=== PATIENT | female | born 1940 | race Caucasian/White ===

== ENCOUNTER 2023-06-12 11:34 | Emergency (ER) | payer MEDICARE, OTHER ==
[~2023-06-12] VITALS: Ht 170.2 cm; Wt 64.0 kg
[2023-06-12 14:52] VITALS: BP 153/87; TEMP 98.4; O2SAT 97
== END 2023-06-12 14:52 | disposition home or self-care (01) ==
LOC: ER 11:45
DX: S01.01XA Laceration without foreign body of scalp, initial encounter (principal); W01.0XXA Fall on same level from slipping, tripping and stumbling without subsequent striking against object, initial encounter; Y93.89 Activity, other specified; Y92.34 Swimming pool (public) as the place of occurrence of the external cause; Y99.8 Other external cause status
CPT/HCPCS: 99284; 70450; 12001; A6403

== ENCOUNTER 2023-06-20 09:06 | Emergency (ER) | payer MEDICARE ==
[~2023-06-20] VITALS: Ht 170.2 cm; Wt 53.5 kg
[2023-06-20 09:11] VITALS: BP 157/82; TEMP 97.9; O2SAT 97
== END 2023-06-20 09:30 | disposition home or self-care (01) ==
LOC: ER 09:06
DX: S01.01XD Laceration without foreign body of scalp, subsequent encounter (principal); X58.XXXD Exposure to other specified factors, subsequent encounter

== ENCOUNTER 2023-08-28 14:17 | Emergency (ER) | payer MEDICARE ==
[~2023-08-28] VITALS: Ht 170.2 cm; Wt 54.4 kg
[2023-08-28 14:30] VITALS: BP 133/74; TEMP 98.3
[2023-08-28] MEDS ORDERED: AMOX-430 PO (14:51)
[2023-08-28 14:56] VITALS: O2SAT 99
== END 2023-08-28 14:57 | disposition home or self-care (01) ==
LOC: ER 14:53
DX: L03.116 Cellulitis of left lower limb (principal); Z79.899 Other long term (current) drug therapy

== ENCOUNTER → 2023-09-09 | Emergency (ER) | payer MEDICARE ==
[~2023-09-09] VITALS: Ht 170.2 cm; Wt 54.4 kg
[~2023-09-09] MED LIST: AMOX-430 PO; POTASSIUM CHLORIDE 20 MEQ TAB.PRT.SR PO ONE
[2023-09-09] MEDS: IV NS 0.9% 1,000 ML BAG IV ONE (10:00)
[2023-09-09 10:03] LABS: BASOPHILS % (AUTO) 0.2 % (0.0-2.0); EOSINOPHILS # (AUTO) 0.1 K/uL (0.0-0.7); EOSINOPHILS % (AUTO) 0.6 % (0.0-6.0); HEMATOCRIT 38 % (33-45); HEMOGLOBIN 13.3 g/dL (11.5-14.8); LYMPHOCYTES # (AUTO) 0.6 K/uL (0.8-4.8); LYMPHOCYTES % (AUTO) 6.4 % (20.0-44.0); MEAN CORPUSCULAR HEMOGLOBIN 34 PG (26.0-33.0); MEAN CORPUSCULAR HGB CONC 35 g/dl (31.0-36.0); MEAN CORPUSCULAR VOLUME 98 fL (82-100); MONOCYTES # (AUTO) 1.1 K/uL (0.1-1.30); MONOCYTES % (AUTO) 12.5 % (2.0-12.0); NEUTROPHILS # (AUTO) 7.2 K/uL (1.8-8.9); NEUTROPHILS % (AUTO) 80.3 % (43.0-81.0); PLATELET COUNT (AUTO) 191 K/uL (150-450); RED BLOOD CELL COUNT(AUTO) 3.87 MIL/uL (4.0-5.2); RED CELL DISTRIBUTION WIDTH 12.5 % (11.5-15.0); WHITE BLOOD COUNT (AUTO) 8.9 K/uL (4.3-11.0)
[2023-09-09 10:15] LABS: CALCIUM, SERUM 8.7 mg/dL (8.5-10.1); CARBON DIOXIDE 25 mmol/L (21-32); CHLORIDE 101 mmol/L (98-107); CREATININE 0.8 mg/dL (0.6-1.3); GLUCOSE 92 mg/dL (74-106); POTASSIUM 2.9 mmol/L (3.5-5.1); SODIUM SERUM 137 mmol/L (136-145); UREA NITROGEN, BLOOD 16 mg/dL (7-18)
[2023-09-09 10:24] LABS: ALANINE AMINOTRANSFERASE 16 U/L (12-78); ALBUMIN 2.5 g/dL (3.4-5.0); ALKALINE PHOSPHATASE 82 U/L (46-116); ASPARTATE AMINOTRANSFERASE 11 U/L (15-37); BILIRUBIN,DIRECT 0.4 mg/dL (0.0-0.2); LIPASE 15 U/L (16-77); TOTAL PROTEIN, SERUM 6.2 g/dL (6.4-8.2)
[2023-09-09] MEDS: POTASSIUM BICARBONATE/CIT AC 25 MEQ TABLET.EFF PO SCH (11:00)
[2023-09-09] MEDS: POTASSIUM CHLORIDE 20 MEQ TAB.PRT.SR PO ONE (11:19)
[2023-09-09 12:38] VITALS: BP 118/68; TEMP 98.1; O2SAT 96
== END | disposition home or self-care (01) ==
LOC: ER 09:19
DX: K52.1 Toxic gastroenteritis and colitis (principal); T36.0X5A Adverse effect of penicillins, initial encounter; E87.6 Hypokalemia; Y92.89 Other specified places as the place of occurrence of the external cause
CPT/HCPCS: 99284; 74176; 96360; 76705; 85025; 80048; 83690; 80076; 36415; J7030